=== PATIENT | male | born 1975 | race Caucasian/White ===

== ENCOUNTER → 2021-06-12 | Day surgery (SDC) | payer BC | END | disposition home or self-care (01) | LOC: OR 05:55 | DX: K64.8 Other hemorrhoids (principal); K60.3 Anal fistula; A63.0 Anogenital (venereal) warts; F17.210 Nicotine dependence, cigarettes, uncomplicated; Z20.822 Contact with and (suspected) exposure to COVID-19 | CPT/HCPCS: J0690; J1100; J1170; J2001; J2250; J2405; J2704; J2710; J3010; J7030; J7120; U0002 ==

== ENCOUNTER → 2021-11-06 | Day surgery (SDC) | payer BC ==
[~2021-11-06] MED LIST: TYLENOL325 MG PO; [UNRECOGNIZED DRUG - SUPPLY] TOP
== END | disposition home or self-care (01) ==
LOC: OR 11-05 07:30
DX: A63.0 Anogenital (venereal) warts (principal); I10 Essential (primary) hypertension; Z79.899 Other long term (current) drug therapy
CPT/HCPCS: J0690; J1100; J1170; J2001; J2250; J2405; J2704; J3010